=== PATIENT | male | born 1960 | race Caucasian/White ===

== ENCOUNTER → 2020-02-11 06:58 | Outpatient (CLI) | payer MEDICARE, SELFPAY ==
[2020-01-30 10:05] VITALS: BMI 31.7
--- NOTE | 2020-02-11 07:08 | ECHOCS_ITS ---
Reason For Study: S/P CABG Procedure This was a 2D Doppler, Color Flow transthoracic echocardiogram. The study was technically difficult. Contrast injection was performed. Exam performed in department. Left Ventricle Normal LV size. The estimated ejection fraction is 50 %. Left ventricular systolic function is lower limits of normal. Mild segmental systolic dysfunction (see wall motion). Mid-anteroseptal : Hypokinetic. [place] : Hypokinetic. The rest of the wall segments are normal. Right Ventricle Normal RV size. Normal systolic function. [place] Normal left atrium. Normal right atrium. Mitral Valve Normal mitral valve. Tricuspid Valve Normal tricuspid valve. Aortic Valve The aortic valve is not well visualized. Pulmonic Valve The pulmonic valve is not well visualized. Great Vessels Normal aortic root. Pericardium/Pleural No pericardial effusion. Medication Diluted definity 4ml given slow IV push to enhance endocardial definition. MMode/2D Measurements & Calculations LVIDd: 5.8 cm IVSd: 0.69 cm Ao root diam: 3.5 cm LVIDs: 4.3 cm LVPWd: 0.90 cm RVDd: 3.3 cm FS: 25.8 % LAV(MOD-bp): 50.9 ml LVAd ap4: 35.9 cm2 SV(MOD-sp4): 70.4 ml LAV(MOD-bp) Indexed: 24.0 ml/m2 EDV(MOD-sp4): 136.2 ml LAV(MOD-sp2): 47.8 ml EDV(sp4-el): 133.8 ml LAV(MOD-sp4): 49.0 ml LVAs ap4: 23.3 cm2 ESV(MOD-sp4): 65.8 ml ESV(sp4-el): 66.8 ml EF(MOD-sp4): 51.7 % EF(sp4-el): 50.1 % SV(sp4-el): 67.1 ml LA A4 area: 17.3 cm2 LA dimension(2D): 4.4 cm RA A4 area: 12.6 cm2 Time Measurements MV dec time: 0.24 sec Doppler Measurements & Calculations MV E max deandre: 66.9 cm/sec Lat Peak E' Deandre: 10.5 cm/sec Med Peak E' Deandre: 7.2 cm/sec MV A max deandre: 62.6 cm/sec E/E' lat: 6.4 E/E' med: 9.3 MV E/A: 1.1 Ao V2 max: 123.3 cm/sec LV V1 max: 105.1 cm/sec PA V2 max: 126.0 cm/sec Ao max P.1 mmHg LV V1 max P.4 mmHg TR max deandre: 239.0 cm/sec TR max P.6 mmHg Interpretation Summary Normal LV size. The estimated ejection fraction is 50 %. Left ventricular systolic function is lower limits of normal. Mild segmental systolic dysfunction (see wall motion). Contrast injection was performed. Ordering Physician: Aguilar Barksdale Referring Physician: RITA THOMPSON Performed By: Ratna Martinez, RDCS, RVT
--- NOTE | 2020-02-11 09:48 | STRESSREP_ITS ---
Stress Test Report Pharmacologic myocardial perfusion stress test. 59-year-old man with a history of coronary artery bypass surgery status post coronary bypass surgery with a LOPEZ to the LAD and diagonal, saphenous vein graft to the lateral circumflex and PDA and saphenous vein graft to the circumflex artery. Stress protocol: Resting EKG demonstrates normal sinus rhythm with a rate of 71 bpm normal intervals are noted resting blood pressure is 118/62 mmHg. 0.4 mg of regadenoson was infused per usual protocol followed by rapid intravenous saline flush injection continuous classroom monitor was performed. The maximum heart rate attained was 100 bpm which was 61% of max impacted heart rate the maximum workload was 1 metabolic equivalent. At rest there were no ST or T wave changes noted to suggest abnormal flow reserve at peak infusion nonspecific ST-T wave changes were noted with no meet the criteria for ischemia. The final blood pressure is 118/62 mmHg. Myocardial perfusion protocol. 14.8 mCi of technetium 99m sestamibi was injected at rest. 0.4 mg of regadenoson was infused per usual protocol. At peak infusion 44.8 mCi of technetium 99m sestamibi was injected stress images were obtained stress and rest images were reconstructed and compared in the short axis vertical long horizontal long axis. Gated images were also obtained Perfusion SPECT analysis: Review of the stress images demonstrate a large defect noted involving the mid anterior wall extending to the apex and the anterior septal and apical septal grace. The rest of the grace appear to be well and normally perfused. The resting images demonstrate a similar pattern. The above is suggestive of a previous extensive anterior apical and anteroseptal infarct. Gated SPECT analysis: The gated ejection fraction is noted to be 50%. Segmental wall motion abnormalities are present. Conclusion: Mild cardiomyopathy. Previous anterior apical and anteroseptal infarct noted. No ischemia present.
== END ==
PROVIDERS: PCP Student in an Organized Health Care Education/Training Program; Referring Provider Internal Medicine Cardiovascular Disease; Visit Provider Internal Medicine Cardiovascular Disease
DX: I25.10 Atherosclerotic heart disease of native coronary artery without angina pectoris (principal); I25.5 Ischemic cardiomyopathy; I10 Essential (primary) hypertension; E78.5 Hyperlipidemia, unspecified; R00.2 Palpitations; F17.200 Nicotine dependence, unspecified, uncomplicated; I25.2 Old myocardial infarction; Z95.1 Presence of aortocoronary bypass graft
CPT/HCPCS: 78452; 93017; 93306; A9500; Q9957; A4216; C8929; J2785